=== PATIENT | male | born 1970 | race African-American/Black ===

== ENCOUNTER 2016-11-07 13:00 | Inpatient (IN) | payer OTHER ==
--- NOTE | ~2016-11-07 | PN ---
Unit #: [id number] #: [id number] Patient: ELVIN VELASQUEZ [id number] [facility] [address] [place] [address] [id number] I MR#: [id number] NAME: ELVIN VELASQUEZ ROOM: P180 Age: 46 Sex: M Admission Date: 11/07/2016 : 1970 Attending Physician: Ilir Adkins M.D. Admitting Physician: Darryl Orozco PROGRESS NOTES DATE 11/13/2016 DISCUSSION Elvin is attending groups and activities on an active basis today. He still complains, somewhat of anxiety and was urged to use his p.r.n. Vistaril. He is looking for long-term care facility and should be able to leave the hospital soon. He has no active SI today. ASSESSMENT Major depression, cocaine dependence. PLAN Continue current treatment plan. Dictated by... Darryl Orozco/doreen TD: 11/14/2016 06:46 JOB #: [id number] CORDEL[facility] PROGRESS NOTES Page 1 of 1 X Ilir Adkins MD X PROGRESS NOTE
--- NOTE | ~2016-11-07 | HP ---
Unit #: [id number] #: [id number] Patient: ELVIN VELASQUEZ [id number] [place] [address] [id number] I MR#: [id number] NAME: ELVIN VELASQUEZ ROOM: 73 Age: 46 Sex: M Admission Date: 11/07/2016 : 1970 Attending Physician: Ilir Adkins M.D. Admitting Physician: Ilir Adkins M.D. HISTORY AND PHYSICAL HISTORY OF PRESENT ILLNESS Elvin is a 46 year old admitted to [facility] because of his drug use which includes cocaine. PAST MEDICAL HISTORY 1. Long history of illicit substance abuse to include cocaine. 2. Obesity. PAST SURGICAL HISTORY Bilateral knees. ALLERGIES No known drug allergies. SOCIAL HISTORY Smokes 1 pack per day. Drinks alcohol frequently and has a history of illicit substance abuse to include snorting cocaine. FAMILY HISTORY Medically noncontributory. REVIEW OF SYSTEMS CONSTITUTIONAL: No fever or chills. HEENT: Denies any sore throat, ear pain or runny nose. CARDIOVASCULAR: Denies chest pain, irregular heart rhythm or palpitations. CHEST: Denies shortness of breath or cough. No hemoptysis. GASTROINTESTINAL: Denies nausea, vomiting, diarrhea or chronic constipation. ENDOCRINE: Denies history of increased thirst or urination. No recent significant weight loss or gain. GENITOURINARY: Denies dysuria, frequency, or hematuria. SKIN: Denies any rashes. HEMATOLOGIC: Denies history of increased bleeding or bruising. MUSCULOSKELETAL: Denies any hot, swollen joints. No generalized muscle pain. NEUROLOGIC: Denies problems with vision or speech. No frequent, severe headaches. No numbness, tingling or weakness in any extremities. Denies loss of bladder or bowel control. CURRENT MEDICATIONS Detox protocol. PHYSICAL EXAMINATION Unit #: [id number] #: [id number] Patient: ELVIN VELASQUEZ GENERAL: Alert, well-nourished, in no apparent distress. VITAL SIGNS: Blood pressure 120/74, heart rate 76, respirations 16, temperature 98.6. WEIGHT: 223. HEIGHT: 5 feet 6 inches. SKIN: Warm and dry without rash or lesion. HEENT: Normocephalic. TMs not viewed. Oral and nasal passages clear. Conjunctivae clear. PERRLA. EOMs intact. NECK: Supple without lymphadenopathy or thyromegaly. HEART: Regular rate and rhythm without murmur. LUNGS: Clear. ABDOMEN: Soft, nontender. : Not done. EXTREMITIES: No evidence of cyanosis, clubbing or edema. Moves all without focal deficit. NEUROLOGICAL: Grossly within normal limits. Cranial Nerves: II: Visual moyer are intact. III, IV AND : Extraocular movements are intact. Pupils are equal, round and reactive to light. V: Facial sensation is grossly normal. VII: Facial movements and expression are normal. VIII: Auditory acuity grossly intact. IX, X: Uvula is midline. Phonation is normal. XI: Patient shrugs shoulders and turns head normally. XII: Tongue protrudes in the midline. Sensory and Motor Function: Sensory and motor sensation is grossly normal. Motor: moves all extremities well. Coordination: Gait is normal. Deep Tendon Reflexes: Intact. IMPRESSION Psychiatric admission. RECOMMENDATIONS PSYCHIATRIC: Per psychiatrist. MEDICAL: See no contraindications to participate in facility's activities. MEDICAL PROGNOSIS Good. MEDICAL CONDITION Stable. Dictated by... Flor Bermeo P.A.-C. for Darryl Workman/anita TD: 11/07/2016 22:39 JOB #: [id number] Unit #: [id number] #: [id number] Patient: ELVIN VELASQUEZ HISTORY AND PHYSICAL Page 1 of 1 X Flor Bermeo HISTORY AND PHYSICAL
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
--- NOTE | ~2016-11-07 | PN ---
Unit #: [id number] #: [id number] Patient: ELVIN VELASQUEZ [id number] [facility] [address] [place] [address] [id number] I MR#: [id number] NAME: ELVIN VELASQUEZ ROOM: 73 Age: 46 Sex: M Admission Date: 11/07/2016 : 1970 Attending Physician: Ilir Adkins M.D. Admitting Physician: Darryl Orozco PROGRESS NOTES DATE 11/10/2016 DISCUSSION Elvin was admitted over the weekend for abuse of cocaine and appears to be still "crashing." He complains of some anxiety, although his speech is slurred and his mood does not appear anxious during my assessment. He is alert and fully oriented with no evidence of psychosis. ASSESSMENT 1. Amphetamine abuse. 2. Cocaine abuse. PLAN Will provide Vistaril p.r.n. as needed for insomnia and continued with current treatments. Dictated by... Ilir Adkins M.D. [facility]/cristiana TD: 11/10/2016 12:35 JOB #: [id number] CORDELIA PROGRESS NOTES Page 1 of 1 X Ilir Adkins MD PROGRESS NOTE
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
--- NOTE | ~2016-11-07 | PN ---
Unit #: [id number] #: [id number] Patient: ELVIN VELASQUEZ [id number] [facility] [address] [place] [address] [id number] I MR#: [id number] NAME: ELVIN VELASQUEZ ROOM: P180 Age: 46 Sex: M Admission Date: 11/07/2016 : 1970 Attending Physician: Ilir Adkins M.D. Admitting Physician: Darryl Orozco PROGRESS NOTES DATE 11/11/2016 DISCUSSION Elvin is tearful and upset this morning. He continues to complain of increasing depression with suicidal ideation. He also is sleeping poorly. He is alert and fully oriented with a tearful affect. Memory and concentration are fair and thought processes are nonpsychotic. ASSESSMENT 1. Major depression. 2. Cocaine abuse. PLAN We will start Celexa 20 mg daily for depression and change trazodone to Seroquel 100 mg at bedtime for insomnia. Dictated by... Darryl Orozco/anita TD: 11/12/2016 21:04 JOB #: [id number] [facility] PROGRESS NOTES Page 1 of 1 X Ilir Adkins MD PROGRESS NOTE
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
--- NOTE | ~2016-11-07 | DS ---
Unit #: [id number] #: [id number] Patient: AMAN VELASQUEZ [id number] [facility] [address] [place] [address] [id number] I MR#: [id number] NAME: AMAN VELASQUEZ ROOM: [facility] Age: 46 Sex: M Admission Date: 11/07/2016 : 1970 Discharge Date: 11/14/2016 Attending Physician: Ilir Adkins M.D. DISCHARGE SUMMARY REASON FOR ADMISSION Mr. Velasquez is a 46-year-old man who came to the hospital reporting depression and reporting suicidality. He had been drinking and doing cocaine and could not contract for safety. He was admitted for stabilization. DIAGNOSTIC STUDIES LABORATORY RESULTS: Please see hospital chart. HOSPITAL COURSE The patient was admitted and placed on suicide precautions. Trazodone was initiated for treatment of insomnia and Vistaril provided for treatment of anxiety. The patient continued to be increasingly depressed and tearful, and citalopram 20 mg daily was added for depression. Trazodone was limited efficacy for his sleep and this was changed to Seroquel 100 mg at bedtime with some improvement. His mood improved and he was able to identify positive elements to his treatment plan and contract for safety on the date of discharge. DISCHARGE DIAGNOSES AXIS I: Major depression; cocaine use; alcohol use. AXIS II: No diagnosis. AXIS III: None acute. AXIS IV: AXIS V: DISCHARGE INSTRUCTIONS The patient was referred to the [facility] for long-term management. DISCHARGE MEDICATIONS Celexa 20 mg daily for depression, Seroquel 200 mg at bedtime for mood stability and sleep, and Vistaril 50 mg b.i.d. as needed for anxiety. CONDITION AT DISCHARGE Fair. PROGNOSIS Fair. DIET AND ACTIVITY Per primary care doctor. Unit #: [id number] #: [id number] Patient: AMAN VELASQUEZ Dictated by... Ilir Adkins M.D. MR/modl TD: 12/05/2016 05:30 JOB #: [id number] DISCHARGE SUMMARY Page 1 of 1 X Ilir Adkins MD X DISCHARGE SUMMARY
[2016-11-08 11:42] LABS: BASOPHIL# 0.1 X10e3 (0-0.3); EOSINOPHIL# 0.6 X10e3 (0-0.7); EOSINOPHIL% 5.1 % (0.0-7.0); HEMOGLOBIN 13.1 gm/dL (13.0-16.0); LYMPHOCYTE# 3.1 X10e3 (1.0-3.5); LYMPHOCYTE% 28.5 % (17.0-45.0); MEAN CELL VOLUME 94.6 FL (83-96); MEAN CORPUSCULAR HEMOGLOBIN 30.3 PG (28-34); MEAN PLATELET VOLUME 8.8 FL (6.5-11.5); MONOCYTE# 1.1 X10e3 (0-1.0); MONOCYTE% 9.8 % (3.0-12.0); NEUTROPHIL% 55.6 % (40-75); RED BLOOD COUNT 4.33 X10e (3.90-5.60); RED CELL DISTRIBUTION WIDTH 13.7 % (11.0-15.5); WHITE BLOOD COUNT 10.8 X10e3 (4.0-10.5)
[2016-11-08 11:43] LABS: DIFF IND YES
[2016-11-08 12:06] LABS: ALBUMIN SERUM 3.7 g/dL (3.5-5.0); BILIRUBIN,TOTAL 0.4 mg/dL (0.2-2.0); BUN/CREATININE RATIO 15.45; CALCIUM SERUM 8.8 mg/dL (8.4-10.2); CREATININE SERUM 1.1 mg/dL (0.6-1.4); GLOM FILT RATE Estimated 94.1 mL/min (>60); POTASSIUM 4.4 mmol/L (3.5-5.1); PROTEIN TOTAL SERUM 6.6 g/dL (6.0-8.3)
[2016-11-08 12:53] LABS: ANISOCYTOSIS SL; PLATELET ESTIMATE NORMAL (NORMAL); STOMATOCYTE PRESENT; VACUOLIZATION SL
[2016-11-08 12:54] LABS: PLATELET COUNT 332 X10e3 (140-420); REACTIVE LYMPHS PRESENT; SMUDGE CELLS 5 /100
[2016-11-13 10:24] LABS: URINE APPEARANCE CLEAR; URINE BILIRUBIN NEG (NEG); URINE BLOOD TRACE (NEG); URINE COLOR DK YELLOW; URINE GLUCOSE NEG (NEG); URINE KETONE NEG (NEG); URINE LEUKOCYTE ESTERASE NEG (NEG); URINE NITRATE NEG (NEG); URINE PROTEIN NEG (NEG); URINE SPECIFIC GRAVITY 1.015 (1.003-1.035); URINE UROBILINOGEN 0.2 MG/DL (NEG)
[2016-11-13 10:28] LABS: URINE BACTERIA AUWI NEG (NEGATIVE); URINE SQUAMOUS EPITHELIAL CELL NONE SEEN /[HPF]; UWBCS1 AUWI 0-2 (0-5)
[2016-11-13 10:40] LABS: AMPHETAMINE NEG (NEG); BARBITURATES NEG (NEG); BENZODIAZEPINES POS (NEG); COCAINE NEG (NEG); MARIJUANA NEG (NEG); OPIATES NEG (NEG); TRICYCLIC ANTIDEPRESSANTS NEG (NEG); U METHADONE NEG (NEG)
== END 2016-11-14 14:56 | disposition home or self-care (01) | DRG 897 ==
LOC: P1E 13:50
PROVIDERS: Psychiatry & Neurology Psychiatry
DX: F14.10 Cocaine abuse, uncomplicated (principal); F10.10 Alcohol abuse, uncomplicated; F32.9 Major depressive disorder, single episode, unspecified; E66.9 Obesity, unspecified; F17.210 Nicotine dependence, cigarettes, uncomplicated
CPT/HCPCS: 80053; 80307; 81003; 85025; 86592